=== PATIENT | female | born 1970 | race Two or more races ===

== ENCOUNTER 2025-02-23 09:59 | Outpatient (AMB) | payer MEDICAID, SELFPAY ==
[2025-02-23 10:46] VITALS: BP 141/78; PULSE 69; RESP 18; TEMP 36.5; O2SAT 97; BMI 45.2
--- NOTE | 2025-02-23 10:46 | ORTHONT_ITS ---
Vital signs 02/23/25 10:46 Height 1.57 m Height Method Stated Weight 112.122 kg Weight Measurement Method Standing Scale BMI 45.2 BP 141/78 H Blood Pressure Source Automatic Cuff Blood Pressure Location Left Upper Arm Position Sitting Respiration 18 Pulse 69 Pulse Source Monitor Temp 97.7 F Temp Source Temporal Artery Scan Pulse Oximetry (%) 97 Oxygen Delivery Method Room Air Med/Allergies Allergies & Medications Allergies acetaminophen (From Tylenol) Allergy (Verified 02/23/25 10:47) adhesive tape Allergy (Verified 02/23/25 10:47) hydrocodone (From [place]) Allergy (Verified 02/23/25 10:47) Medication Reconciliation albuterol sulfate 1.25 mg/3 mL solution for nebulization 1.25 mg inhalation QID PRN 02/23/25 [History Confirmed 02/23/25] meloxicam 7.5 mg tablet 7.5 mg PO QDAY #45 tabs 02/23/25 [Rx] prednisone 5 mg tablet 5 mg PO Q OTHER DAY 02/23/25 [History Confirmed 02/23/25] Exam Exam Patient is in no acute distress and is cooperative with the examination today. Breathing is nonlabored. Patient has a normal mood and affect. Bilateral extremities were evaluated and demonstrates sensation intact to light touch. Palpable pedal pulses are present. No significant edema is present. Bilateral hips were examined. The patient has no pain with log roll of the hips. Internal rotation to 30 degrees and external rotation to 30 degrees is painless. Negative FADIR. Left knee was examined today. The left knee is in reasonable alignment. Range of motion from 0-120 degrees. Knee is stable to varus and valgus as well as AP translation with <5mm. Patient has a negative McMurrays. There is no pain with patellofemoral compression and no crepitus noted. The knee is nontender to palpation. The right knee was also examined. The right knee is in varus alignment. Range of motion from 0-115 degrees. Knee is stable to varus and valgus as well as AP translation with <5mm. Patient has a negative McMurrays. There is no pain with patellofemoral compression and no crepitus noted. The knee is tender to palpation medially. She does not have weight bearing xrays and we will order them. Assessment and Plan Problem List (1) Arthritis of both knees: Status: Acute Plan: Patient is a 54yo male with severe right knee arthritis. We will get weight bearing xrays. SHe has not had any injections and we will get authorization for this. We discussed NSAIDS and weight loss in great detail as she is not a great candidate for surgery currently. Office Procedures GNS Level of Care Nursing/Assessment Patient Status: Initial/New Patient Nursing Assessment/Reassesment: Medication Reconciliation, Update PMH in EMR and Vital Signs Coordination of Care: Complex Care and Chronic Disease 1-5, Education Complex Pt/Fam, Consent,records obtained, informed consent, 1 Ins Authorization, Lab and Imaging orders, Results/Orders obtained and Staff clarify orders New Patient Charge New Patient Point Assignment: 1124 New Patient Point Charge: POWER SYSTEM OPERATOR Level 4 ([id number]) MA Intake Visit Data Collection New Patient or Established: New Patient (never been to [facility]) Reason for Visit:: RIGHT KNEE MENISCUS TEAR Seen by Clinical Staff ONLY (RN/MA): No PCP or OBGYN visit in last 3 months: Yes Hx Now: No Do You Feel Safe at Home: Yes Authorities Contacted: N/A Questionairres Past Medical History Past Medical History Have you ever been diagnosed with any of the following: Respiratory Problems Smoking: No Smoking Exposure: No Subjective Visit Visit for: new patient and knee Immunization / Flu Flu Vaccine in the Last 12 Months: Yes Flu Vaccine Exclusion Criteria: Already Received History of Present Illness Chief complaint: knee pain Date of injury / onset of symptoms: 3 YEARS Patient is a 54 yo female with right knee pain worse than the left. This has been ongoing for a while. She has been trying to lose weight. She has not had any injections Personal History Occupation: DISABLED BMI Counceling provided: Yes Pain Pain level (0-10): 6 Pain duration: WITH MOVEMENT Pain location: inside (medial) and anterior Pain quality: sharp, dull and aching Pain timing: night, increases with activity and stairs Associated signs & symptoms: numbness Ambulatory data Ambulatory device: cane Treatments Improvement with previous injections: No Improvement with PT: No Improvement with NSAIDS: no Review of Systems Review of Systems: All systems negative unless otherwise noted in HPI.
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
== END 2025-02-23 10:59 | disposition home or self-care (01) ==
LOC: HODSRG 09:59
PROVIDERS: PCP Internal Medicine Rheumatology; Referring Provider Internal Medicine Rheumatology; Supervising Provider Orthopaedic Surgery Adult Reconstructive Orthopaedic Surgery; Visit Provider Orthopaedic Surgery Adult Reconstructive Orthopaedic Surgery
DX: M17.0 Bilateral primary osteoarthritis of knee (principal); M25.561 Pain in right knee; M25.562 Pain in left knee
CPT/HCPCS: 73564; 99204; G0463

== ENCOUNTER 2025-03-09 14:53 | Outpatient (AMB) | payer MEDICAID, SELFPAY ==
[2025-03-09 15:31] VITALS: BP 143/84; PULSE 98; RESP 18; TEMP 36.7; O2SAT 94; BMI 45.3
--- NOTE | 2025-03-09 15:31 | ORTHONT_ITS ---
Vital signs 03/09/25 15:31 Height 1.57 m Height Method Stated Weight 111.669 kg Weight Measurement Method Standing Scale BMI 45.3 BP 143/84 H Blood Pressure Source Automatic Cuff Blood Pressure Location Left Upper Arm Position Sitting Respiration 18 Pulse 98 Pulse Source Monitor Temp 98.1 F Temp Source Temporal Artery Scan Pulse Oximetry (%) 94 L Oxygen Delivery Method Room Air Med/Allergies Allergies & Medications Allergies acetaminophen (From Tylenol) Allergy (Verified 03/09/25 15:32) adhesive tape Allergy (Verified 03/09/25 15:32) hydrocodone (From [place]) Allergy (Verified 03/09/25 15:32) Medication Reconciliation albuterol sulfate 1.25 mg/3 mL solution for nebulization 1.25 mg inhalation QID PRN 02/23/25 [History Confirmed 03/09/25] meloxicam 7.5 mg tablet 7.5 mg PO QDAY #45 tabs 02/23/25 [Rx Confirmed 03/09/25] prednisone 5 mg tablet 5 mg PO Q OTHER DAY 02/23/25 [History Confirmed 03/09/25] Exam Exam Patient is in no acute distress and is cooperative with the examination today. Breathing is nonlabored. Patient has a normal mood and affect. Bilateral extremities were evaluated and demonstrates sensation intact to light touch. Palpable pedal pulses are present. No significant edema is present. Bilateral hips were examined. The patient has no pain with log roll of the hips. Internal rotation to 30 degrees and external rotation to 30 degrees is painless. Negative FADIR. Left knee was examined today. The left knee is in reasonable alignment. Range of motion from 0-120 degrees. Knee is stable to varus and valgus as well as AP translation with <5mm. Patient has a negative McMurrays. There is no pain with patellofemoral compression and no crepitus noted. The knee is nontender to palpation. The right knee was also examined. The right knee is in varus alignment. Range of motion from 0-115 degrees. Knee is stable to varus and valgus as well as AP translation with <5mm. Patient has a negative McMurrays. There is no pain with patellofemoral compression and no crepitus noted. The knee is tender to palpation medially. Weightbearing x-rays demonstrates complete joint space narrowing medially and osteophytes. Assessment and Plan Problem List (1) Arthritis of both knees: Status: Acute Plan: Patient is a 54yo male with severe right knee arthritis. We will get weight bearing xrays. SHe has not had any injections and we will get authorization for this. We discussed NSAIDS and weight loss in great detail as she is not a great candidate for surgery currently. Recommend knee cortisone injection as patient would like to proceed with conservative treatment at this time. The risks and benefits of the procedure were reviewed with the patient and patient gave verbal consent to continue with the procedure. Procedure: performed by Dr. Kamara Using sterile technique the Right knee was thoroughly prepped with alcohol, and approximately 1 cc of Depo-Medrol 80mg/mL and 4 cc of 0.2% ropivacaine was injected without resistance into the medial tibial femoral joint space. The patient tolerated the procedure. Office Procedures GNS Level of Care Nursing/Assessment Patient Status: Established Patient Nursing Assessment/Reassesment: Medication Reconciliation, Update PMH in EMR and Vital Signs Coordination of Care: Complex Care and Chronic Disease 1-5, Education Complex Pt/Fam, Consent,records obtained, informed consent, Results/Orders obtained and Staff clarify orders Established Patient Charge Established Patient Point Assignment: 95 Established Patient Point Charge: EP Level 3 (80-115) Surgical Proc/IM SQ injection Major Surgical Procedure: Yes (KNEE INJECTION) Medication Given Medication Given Medication Given: Yes Documented Dose Given: 1 Route: Infiitration Medication Given Medication Given Medication Given: Yes Documented Dose Given: 4 Route: Infiitration Office Meds methylprednisolone acetate 80 mg/mL suspension for injection Performing Provider: Nacho Kamara MD Performing Location: [facility] Administered by: Nacho Kamara MD on 03/09/25 15:45 Dose Route Admin Location Dispensed Lot Number Expiration Date [facility] Materials Recycler 80 mg intra-articular KNEE 1 mL [id number] 01/09/27 [address]-[address] [facility] ropivacaine (PF) 2 mg/mL (0.2 %) injection solution Performing Provider: Nacho Kamara MD Performing Location: [facility] Administered by: Nacho Kamara MD on 03/09/25 15:45 Dose Route Admin Location Dispensed Lot Number Expiration Date [facility] Materials Recycler 20 mL Infiltration KNEE 20 mL [id number] 06/11/26 97781-070-88 [facility] Intake Visit Data Collection Reason for Visit:: RIGHT KNEE MENISCUS TEAR Seen by Clinical Staff ONLY (RN/MA): No PCP or OBGYN visit in last 3 months: Yes Hx Now: No Do You Feel Safe at Home: Yes Authorities Contacted: N/A Questionairres Past Medical History Past Medical History Have you ever been diagnosed with any of the following: Respiratory Problems Smoking: No Smoking Exposure: No Subjective Visit Visit for: follow up visit, knee, x-rays and injections Immunization / Flu Flu Vaccine in the Last 12 Months: Yes Flu Vaccine Exclusion Criteria: Already Received History of Present Illness Chief complaint: knee pain Date of injury / onset of symptoms: 3 YEARS Patient is a 54 yo female with right knee pain worse than the left. This has been ongoing for a while. She has been trying to lose weight. She has not had any injections. She would like an injection on the right knee only today Personal History Occupation: DISABLED BMI Counceling provided: Yes Pain Pain level (0-10): 6 Pain duration: WITH MOVEMENT Pain location: inside (medial) and anterior Pain quality: sharp, dull and aching Pain timing: night, increases with activity and stairs Associated signs & symptoms: numbness Ambulatory data Ambulatory device: cane Treatments Number of previous injections: 1 Improvement with previous injections: No Improvement with PT: No Improvement with NSAIDS: no Review of Systems Review of Systems: All systems negative unless otherwise noted in HPI.
== END 2025-03-09 15:39 | disposition home or self-care (01) ==
LOC: HODSRG 14:53
PROVIDERS: PCP Internal Medicine Rheumatology; Referring Provider Internal Medicine Rheumatology; Supervising Provider Orthopaedic Surgery Adult Reconstructive Orthopaedic Surgery; Visit Provider Orthopaedic Surgery Adult Reconstructive Orthopaedic Surgery
DX: M17.0 Bilateral primary osteoarthritis of knee (principal); M25.562 Pain in left knee; M25.561 Pain in right knee
CPT/HCPCS: 20610; 99213; J1010; J2795; G0463

== ENCOUNTER 2025-06-11 09:51 | Outpatient (AMB) | payer MEDICAID, SELFPAY ==
--- NOTE | 2025-06-11 09:56 | ORTHONT_ITS ---
Vital signs 06/11/25 09:57 Height 1.57 m Height Method Stated Weight 106.821 kg Weight Measurement Method Standing Scale BMI 43.3 BP 132/73 H Blood Pressure Source Automatic Cuff Blood Pressure Location Left Upper Arm Position Sitting Respiration 18 Pulse 71 Pulse Source Monitor Temp 97.6 F Temp Source Temporal Artery Scan Pulse Oximetry (%) 93 L Oxygen Delivery Method Room Air Med/Allergies Allergies & Medications Allergies acetaminophen (From Tylenol) Allergy (Verified 06/11/25 09:57) adhesive tape Allergy (Verified 06/11/25 09:57) hydrocodone (From [place]) Allergy (Verified 06/11/25 09:57) Medication Reconciliation albuterol sulfate 1.25 mg/3 mL solution for nebulization 1.25 mg inhalation QID PRN 02/23/25 [History Confirmed 06/11/25] meloxicam 7.5 mg tablet 7.5 mg PO QDAY #45 tabs 02/23/25 [Rx Confirmed 06/11/25] prednisone 5 mg tablet 5 mg PO Q OTHER DAY 02/23/25 [History Confirmed 06/11/25] Exam Exam Patient is in no acute distress and is cooperative with the examination today. Breathing is nonlabored. Patient has a normal mood and affect. Bilateral extremities were evaluated and demonstrates sensation intact to light touch. Palpable pedal pulses are present. No significant edema is present. Bilateral hips were examined. The patient has no pain with log roll of the hips. Internal rotation to 30 degrees and external rotation to 30 degrees is painless. Negative FADIR. Left knee was examined today. The left knee is in reasonable alignment. Range of motion from 0-120 degrees. Knee is stable to varus and valgus as well as AP translation with <5mm. Patient has a negative McMurrays. There is no pain with patellofemoral compression and no crepitus noted. The knee is nontender to palpation. The right knee was also examined. The right knee is in varus alignment. Range of motion from 0-115 degrees. Knee is stable to varus and valgus as well as AP translation with <5mm. Patient has a negative McMurrays. There is no pain with patellofemoral compression and no crepitus noted. The knee is tender to palpation medially. Weightbearing x-rays demonstrates complete joint space narrowing medially and osteophytes. Assessment and Plan Problem List (1) Arthritis of both knees: Status: Acute Plan: Patient is a 54yo male with severe right knee arthritis. We will get weight bearing xrays. SHe has not had any injections and we will get authorization for this. We discussed NSAIDS and weight loss in great detail as she is not a great candidate for surgery currently. She had some thyroid nodules and is getting this worked up. She is trying to continue to lose weight. Office Procedures GNS Level of Care Nursing/Assessment Patient Status: Established Patient Nursing Assessment/Reassesment: Medication Reconciliation, Update PMH in EMR and Vital Signs Coordination of Care: Complex Care and Chronic Disease 1-5, Education Complex Pt/Fam, Consent,records obtained, informed consent, Results/Orders obtained and Staff clarify orders Established Patient Charge Established Patient Point Assignment: 95 Established Patient Point Charge: EP Level 3 (80-115) MA Intake Visit Data Collection New Patient or Established: Established Patient (seen at [facility] within 3 years) Reason for Visit:: FOLLOW UP KNEE INJ Seen by Clinical Staff ONLY (RN/MA): No PCP or OBGYN visit in last 3 months: Yes Hx Now: No Do You Feel Safe at Home: Yes Authorities Contacted: N/A Questionairres Past Medical History Past Medical History Have you ever been diagnosed with any of the following: Respiratory Problems Smoking: No Smoking Exposure: No Subjective Visit Visit for: follow up visit, knee and injections Immunization / Flu Flu Vaccine in the Last 12 Months: Yes Flu Vaccine Exclusion Criteria: Already Received History of Present Illness Chief complaint: FU knee pain Date of injury / onset of symptoms: 3 YEARS Patient is a 54 yo female with right knee pain worse than the left. This has been ongoing for a while. She has been trying to lose weight. She has not had any injections. She would like an injection on the right knee only today. Personal History Occupation: DISABLED BMI Counceling provided: Yes Pain Pain level (0-10): 6 Pain duration: WITH MOVEMENT Pain location: inside (medial) and anterior Pain quality: sharp, dull and aching Pain timing: night, increases with activity and stairs Associated signs & symptoms: numbness Ambulatory data Ambulatory device: cane Treatments Number of previous injections: 2 Improvement with previous injections: No Improvement with PT: No Improvement with NSAIDS: no Review of Systems Review of Systems: All systems negative unless otherwise noted in HPI.
[2025-06-11 09:57] VITALS: BP 132/73; PULSE 71; RESP 18; TEMP 36.4; O2SAT 93; BMI 43.3
== END 2025-06-11 10:03 | disposition home or self-care (01) ==
LOC: HODSRG 09:51
PROVIDERS: PCP Internal Medicine Rheumatology; Referring Provider Internal Medicine Rheumatology; Supervising Provider Orthopaedic Surgery Adult Reconstructive Orthopaedic Surgery; Visit Provider Orthopaedic Surgery Adult Reconstructive Orthopaedic Surgery
DX: M25.561 Pain in right knee (principal); M25.562 Pain in left knee; M17.0 Bilateral primary osteoarthritis of knee
CPT/HCPCS: 99213; G0463